=== PATIENT | female | born 1975 | race Hispanic/Latino ===

== ENCOUNTER 2016-09-21 12:48 | Outpatient (CLI) | payer MEDICAID ==
--- NOTE | 2016-09-21 14:31 | Ultrasound Report ---
Pelvic ultrasound: Transabdominal and endovaginal imaging demonstrates a large heterogeneous mass anterior to the uterine fundus. The mass measures approximately 16.6 cm in greatest dimension. It is vascular. The texture the mass is considerably different than the fundus. The uterus appears to measure 3.6 x 5.8 x 0.5 cm. 3 discrete hypoechogenic masses are scattered in the myometrium measuring 16, 22, and 32 mm respectively. The endometrium is unremarkable with a width of 12 mm. The left ovary is identified and appears to measure 5.7 cm in greatest dimension. Right ovary is not identified. There is a moderate amount of free clear fluid in the cul-de-sac. Impressions: 1. The large mass appears to be separate from the uterus and may represent the right ovary which is not otherwise identified. If so, it is suspicious for malignancy. 2. Multiple uterine fibroids. Recommendation: Consider MRI for better evaluation of pelvic structures.
== END 2016-09-21 12:49 | disposition home or self-care (01) ==
LOC: US 12:48
PROVIDERS: ATTEND Family Medicine
DX: D25.9 Leiomyoma of uterus, unspecified (principal); R19.00 Intra-abdominal and pelvic swelling, mass and lump, unspecified site
CPT/HCPCS: 76830; 76856